=== PATIENT | male | born 1965 | race Caucasian/White ===

== ENCOUNTER 2016-06-26 08:44 | Day surgery (SDC) | payer BC ==
[2016-06-26] MEDS ORDERED: LACTATED RINGERS 1,000 ML IV ONE ×2 (09:51→11:28)
[2016-06-26] MEDS ORDERED: MIDAZOLAM 2 MG/2 ML VIAL IVP ONE (11:06)
[2016-06-26] MEDS ORDERED: fentaNYL 100 MCG/2 ML VIAL IVP ONE (11:06)
== END 2016-06-26 08:45 | disposition home or self-care (01) ==
PROC: 0DJD8ZZ Inspection of Lower Intestinal Tract, Via Natural or Artificial Opening Endoscopic (ICD-10-PCS; principal; 2016-06-26 09:45)
DX: Z12.11 Encounter for screening for malignant neoplasm of colon (principal); Z87.891 Personal history of nicotine dependence
CPT/HCPCS: 45378; J7120

== ENCOUNTER 2020-09-08 08:52 | Emergency (ER) | payer OTHER, BC ==
--- NOTE | 2020-09-08 10:53 | ED Physician Documentation ---
PD HPI LOWER EXT INJURY - Stated complaint Stated Complaint: RT KNEE INJURY - Chief complaint Chief Complaint: Ext Problem - History obtained from History obtained from: Patient - History of Present Illness PD HPI LOW EXT INJURY LOCATION: Right, Knee Type of injury: Fall Where injury occurred: Work Timing - onset: Yesterday Timing - duration: Days (1) Timing - details: Abrupt onset, Still present Improved by: Rest, Immobilization Worsened by: Moving, Palpating Associated symptoms: Swelling. No: Weakness, Numbness, Tingling Contributing factors: No: Anticoagulated Similar symptoms before: Has not had sx before Recently seen: Not recently seen - Additional information Additional information: Previously well 55-year-old male was at work yesterday when he stepped off of the ramp of a truck and was attempting to go down the ramp when he stepped off he went out about 3 feet. He landed on his foot and twisted his knee. He had some immediate pain associated with that but was able to walk and finished work. Last night he had a difficult time getting comfortable. He has pain in his knee if he keeps it bent for a while and when he goes to walk on it. Pain is on the medial surface he does not feel instability Review of Systems Constitutional: denies: Fever Nose: denies: Congestion Respiratory: denies: Cough GI: denies: Abdominal Pain, Vomiting, Diarrhea PD PAST MEDICAL HISTORY - Past Medical History Psych: Anxiety, Claustrophobia Musculoskeletal: Osteoarthritis - Past Surgical History Past Surgical History: Yes - Present Medications Home Medications: Ambulatory Orders Medication Instructions Recorded Confirmed No Known Home Medications 09/08/20 09/08/20 - Allergies Allergies/Adverse Reactions: Allergies Allergy/AdvReac Type Severity Reaction Status Date / Time No Known Drug Allergies Allergy Verified 02/03/16 11:50 - Social History Does the pt smoke?: No Smoking Status: Never smoker Does the pt drink ETOH?: No Does the pt have substance abuse?: No PD ED PE NORMAL - Vitals Vital signs reviewed: Yes (hypertensive ) - General General: Alert and oriented X 3, No acute distress, Well developed/nourished - HEENT HEENT: Atraumatic, PERRL, EOMI - Respiratory Respiratory: No respiratory distress - Derm Derm: Normal color, Warm and dry, No rash - Extremities Extremities: No deformity, No edema, Other (Examination of the right knee is able to move a full range of motion there is no obvious palpable effusion or deformity to the knee mild medial pain ligaments are stable to testing distal neurovascular intact) - Neuro Neuro: Alert and oriented X 3, 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 No acute fracture or joint effusion.), EMP read indepedently, See rad report PD MEDICAL DECISION MAKING - ED course Complexity details: reviewed results, re-evaluated patient, considered differential, d/w patient ED course: 55-year-old male jumping off of a ramp jamming his right knee has no evidence of fracture on x-ray examination he has no obvious ligamentous injury on physical examination he does have pain in his knee he is placed into a knee immobilizer and given instructions for knee sprain he will follow up with orthopedics as needed. Departure - Departure Disposition: 01 Home, Self Care Clinical Impression: Knee sprain Qualifiers: Encounter type: initial encounter Involved ligament of knee: unspecified ligament Laterality: right Qualified Code(s): S83.91XA - Sprain of unspecified site of right knee, initial encounter Condition: Stable Instructions: ED Sprain Knee Follow-Up: Teja Myles DO [Primary Care Provider] - Forms: Activity restrictions Discharge Date/Time: 09/08/20 11:57
--- NOTE | 2020-09-08 11:28 | XRAY Report ---
PROCEDURE: Knee 4 View RT INDICATIONS: fall twist medial pain TECHNIQUE: 4 views of the right knee(s) were acquired. COMPARISON: None. FINDINGS: Bones: No acute fractures or dislocations. There is a deformity of remote, healed proximal fibular diaphyseal fracture. No suspicious bony lesions. Soft tissues: No joint effusion. No suspicious soft tissue calcifications. IMPRESSION: 1. No acute fracture or joint effusion. Reviewed by: Angeline Dean MD on 09/08/2020 11:27 AM PDT Approved by: Angeline Dean MD on 09/08/2020 11:27 AM PDT Station ID: [id number]
[2020-09-08 11:58] VITALS: BP 150/92
== END 2020-09-08 11:57 | disposition home or self-care (01) ==
LOC: ED 08:52
DX: S83.91XA Sprain of unspecified site of right knee, initial encounter (principal); X50.1XXA Overexertion from prolonged static or awkward postures, initial encounter; Y93.89 Activity, other specified; Y99.0 Civilian activity done for income or pay
CPT/HCPCS: 1040M; 73564; 99282; 99283

== ENCOUNTER 2023-05-19 07:13 | Outpatient (CLI) | payer BC, OTHER ==
--- NOTE | 2023-05-19 14:20 | Ultrasound Report ---
PROCEDURE: Bladder INDICATIONS: POOR URINARY STREAM TECHNIQUE: Real-time scanning was performed of the bladder, with image documentation. COMPARISON: None FINDINGS: Bladder: Pre-void bladder volume is 568 mL. Post-void residual is 291 mL. Pre-void images demonstr ate no intraluminal masses or stones. On pre-void images, both ureteral jets are noted with color Do ppler interrogation. (Of note, ureteral jets may not be detectable in up to 25% of cases due to insu fficient differences in specific gravity between ureteral and bladder urine). Miscellaneous: No free pelvic fluid. Prostatomegaly, measuring 4.2 x 3.9 x 4.0 cm. IMPRESSION: Abnormal post void residual of 291 mL. Prostatomegaly. Reviewed by: Henry Elena MD on 05/19/2023 2:18 PM PDT Approved by: Henry Elena MD on 05/19/2023 2:18 PM PDT Station ID: [id number]
== END 2023-05-19 07:14 | disposition home or self-care (01) ==
LOC: DI 07:13
PROVIDERS: ATTEND Physician Assistant
DX: R39.12 Poor urinary stream (principal); N40.0 Benign prostatic hyperplasia without lower urinary tract symptoms